=== PATIENT | male | born 1990 | race Caucasian/White ===

== ENCOUNTER 2016-10-17 22:56 | Emergency (ER) | payer SELFPAY ==
[2016-10-18 01:35] VITALS: BP 134/88
== END 2016-10-18 01:00 | disposition home or self-care (01) ==
LOC: ED 22:56
DX: S06.0X1A Concussion with loss of consciousness of 30 minutes or less, initial encounter (principal); W22.8XXA Striking against or struck by other objects, initial encounter; Y93.89 Activity, other specified; Y99.8 Other external cause status; Y92.89 Other specified places as the place of occurrence of the external cause